=== PATIENT | male | born 1975 | race African-American/Black ===

== ENCOUNTER → 2016-10-29 | Outpatient (CLI) | payer BC ==
[~2016-10-29] MED LIST: ATENOLOL PO; CIPRO PO; COMBIVIR TABLET1 TAB PO; FLOMAX0.4 MG PO; LISINOPRIL PO; NORVIR100 MG PO; PERCOCET5/325 PO; PHENERGAN PO; RAYATAZ
--- NOTE | ~2016-10-29 | MR104 ---
[facility] A Service of [facility] RADIOLOGY TEXT RESULTS PATIENT: NITA MCCAULEY LOCATION: [facility] : [birth year] UNIT #: [id number] AGE: [address]: DASH VINSON MD SEX: M ORDER DR: [id number] [place] [id number] O MR#: [id number] Acc #: [id number] NAME: NITA CMCAULEY : 1975 SEX: M STUDY DATE/TIME: 10/29/2016 17:24 UNIT: [facility] ROOM: STUDY DESCRIPTION: MR Knee Wo Contrast Rt Attending Physician: Dash Vinson M.D. Referring Physician: Dash Vinson M.D. Ordering Physician: Rodolfo Vinson M.D. Primary Care Physician: Hiram Cochran M.D. MRI CENTER REPORT This report is preliminary unless electronic signature is present. EXAM Right knee MRI without contrast, 10/29/2016 HISTORY 41-year-old male with right knee pain status post injury playing basketball 10/10/2016. No prior right knee surgery COMPARISON Right knee x-rays, 10/24/2016 TECHNIQUE Routine unenhanced multiplanar, multisequence high field MR imaging of the right knee was performed. FINDINGS The medial and lateral menisci are intact. Cruciate and collateral ligaments are intact. Extensor mechanism is intact. There is a small joint effusion with mild synovial proliferation. No popliteal cyst. There is a questionable 8.0 mm loose body located superior to the posterior root attachment of the medial meniscus. This is an equivocal finding. There is also a full-thickness chondral defect along the posterior weightbearing lateral femoral condyle which measures approximately 17.0 x 5.0 mm in size. Medial compartment articular cartilage is intact. 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 There is a small area of bone infarction involving the lateral femoral condyle which does not clearly contact the articular surface. This measures approximately 2.0 x 0.6 cm in size. The remainder of the bone marrow signal is within normal limits. Visualized musculature is unremarkable. [facility] A Service of [facility] RADIOLOGY TEXT RESULTS PATIENT: NITA MCCAULEY LOCATION: [facility] : [birth year] UNIT #: [id number] AGE: [address]: DASH VINSON MD SEX: M ORDER DR: IMPRESSION 1. No evidence of a meniscus tear or acute ligament injury. 2. Focal full-thickness chondral defect along the posterior weightbearing surface of the lateral femoral condyle measuring 17.0 x 5.0 mm. There is a questionable loose body located superior to the posterior root attachment of the medial meniscus measuring approximately 8.0 mm in size. 3. 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 4. 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 5. Small joint effusion with mild synovial proliferation. Dictated by... Paco Perdomo M.D. THIS IS AN ELECTRONICALLY VERIFIED REPORT Paco Perdomo M.D. at 10/30/2016 4:08 PM Ronal TD: 10/30/2016 11:52 JOB #: [id number] MRI CENTER REPORT Page 1 of 1
== END | disposition home or self-care (01) ==
LOC: SMRI 17:00
DX: M25.561 Pain in right knee (principal); M25.461 Effusion, right knee; M22.41 Chondromalacia patellae, right knee; M21.861 Other specified acquired deformities of right lower leg
CPT/HCPCS: 73721